=== PATIENT | male | born 2000 | race Hispanic/Latino ===

== ENCOUNTER 2018-03-16 13:43 | Emergency (ER) | payer MEDICAID ==
[~2018-03-16] VITALS: Ht 165.1 cm; Wt 65.4 kg
[2018-03-16 14:00] VITALS: BP 139/93
[2018-03-16] MEDS ORDERED: BACTRIM DS1 TAB PO (14:45)
[2018-03-16] MEDS ORDERED: KEFLEX500 MG PO (14:45)
== END 2018-03-16 15:00 | disposition home or self-care (01) ==
LOC: ED 13:43
DX: L03.012 Cellulitis of left finger (principal); E11.9 Type 2 diabetes mellitus without complications; B95.61 Methicillin susceptible Staphylococcus aureus infection as the cause of diseases classified elsewhere; F41.9 Anxiety disorder, unspecified; F32.9 Major depressive disorder, single episode, unspecified; Z79.4 Long term (current) use of insulin

== ENCOUNTER 2018-03-19 14:59 | Emergency (ER) | payer BC, MEDICAID ==
[~2018-03-19] VITALS: Ht 165.1 cm; Wt 70.0 kg
[~2018-03-19 14:59] MED LIST: BACTRIM DS1 TAB PO; KEFLEX500 MG PO
[2018-03-19 15:50] VITALS: BP 126/78
== END 2018-03-19 15:50 | disposition home or self-care (01) | DRG 951 ==
LOC: ED 14:59
DX: Z48.01 Encounter for change or removal of surgical wound dressing (principal)

== ENCOUNTER 2019-02-25 11:22 | Emergency (ER) | payer BC, MEDICAID ==
[~2019-02-25] VITALS: Ht 165.1 cm; Wt 71.0 kg
[2019-02-25] MEDS ORDERED: METFORMIN500 MG PO (11:33)
[2019-02-25] MEDS ORDERED: TRESIBA FL100 UNIT/M SC (11:33)
[2019-02-25 12:22] VITALS: BP 128/70
== END 2019-02-25 12:27 | disposition home or self-care (01) | DRG 395 ==
LOC: ED 11:22
DX: K60.2 Anal fissure, unspecified (principal); E11.9 Type 2 diabetes mellitus without complications; Z79.4 Long term (current) use of insulin